=== PATIENT | male | born 1985 | race Caucasian/White ===

== ENCOUNTER 2016-04-23 09:57 | Emergency (ER) | payer BC ==
[~2016-04-23] VITALS: Wt 100.0 kg
[2016-04-23] MEDS ORDERED: IBUPROFEN 600 MG TAB PO STA (11:52)
--- NOTE | 2016-04-23 12:07 | ERD ---
ER Documentation Chief Complaint Date/Time DATE: 04/23/16 TIME: 12:04 Chief Complaint NON TRAUMATIC LEFT ELBOW PAIN NO SWELLING. NO SOB. NO CP. NO DEFORMITY HPI This is a 30-year-old male presenting to the emergency department complaining of left lateral elbow pain comes and goes for the past 2 days. Patient states that pain increases with certain movements of his hand. He denies any restricted range of motion, swelling. Patient rates as moderate in severity. Denies any trauma. Denies any shortness of breath or chest pain. He has not tried any medications for this ROS All systems reviewed and are negative except as per history of present illness. Allergies Allergies: Coded Allergies: No Known Allergy (Unverified , 01/09/14) PMhx/Soc Medical and Surgical Hx: pt denies Surgical Hx History of Surgery: No Anesthesia Reaction: No Hx Neurological Disorder: No Hx Respiratory Disorders: No Hx Cardiac Disorders: Yes (high cholesterol) Hx Psychiatric Problems: No Hx Miscellaneous Medical Probl: No Hx Alcohol Use: No Hx Substance Use: No Hx Tobacco Use: No Physical Exam Vitals Vital Signs Date Time Temp Pulse Resp B/P Pulse Ox O2 Delivery O2 Flow Rate FiO2 04/23/16 09:59 98.5 92 21 140/87 98 Physical Exam General: WD/WN, in no apparent distress, non-toxic appearing HENT: NC/AT Eyes: Conjunctiva normal Neck: Supple Pulm: Clear to auscultation, normal labored breathing; no wheezing/rales/ rhonchi heard CV: Good capillary refill GI: Non-distended, no guarding Back: No masses Ext: Nontender to palpation on the left elbow, mild tenderness with flexion. There is no deformity, patient has full range of motion of wrist elbow shoulder. No tenderness to palpation in the spine. +2 pulses Neuro: Moves on all fours Skin: intact Psych: Normal mood PULM: Normal labored breathing CV: RRR Good capillary refill GI: Non-distended, no guarding BACK: No masses EXT: No clubbing, cyanosis, or edema NEURO: Moves on all fours SKIN: intact PSYCH: Normal mood Results 24 hrs Current Medications Medications (Trade) Dose Ordered Sig/Claribel Route PRN Reason Start Time Stop Time Status Last Admin Dose Admin Ibuprofen (Motrin) 600 mg ONCE STAT PO 04/23/16 11:52 04/23/16 11:53 DC 04/23/16 11:58 Procedures/MDM This is a 30-year-old male presenting to the emergency room complaining of left elbow pain without any trauma or injury the past couple days. On examination patient had full range of motion, head no deformity swelling. Patient did not have any neuro deficits. Differentials include but not limited to sprain, tendinitis, radiculopathy. Low suspicion for fracture dislocation. I discussed with patient to follow-up with his primary care physician for possible referral to see orthopedist. Mustapha bandage was applied in the ER. He is neurovascular intact pre-and post treatment. Discussed return to the ER for any worsening signs or symptoms. Prescription for ibuprofen was given. Patient understands and agrees with plan Departure Diagnosis: Primary Impression: Elbow pain Condition: Stable EVAN MEDEIROS PA-C Apr 23, 2016 12:06
[2016-04-23] MEDS ORDERED: IBUP-1542 PO (12:26)
== END 2016-04-23 12:35 | disposition home or self-care (01) ==
LOC: FTE 09:57
DX: M25.522 Pain in left elbow (principal)
CPT/HCPCS: Z7502; Z7610; 99283